=== PATIENT | male | born 1945 | race Caucasian/White ===

== ENCOUNTER 2018-03-29 09:21 | Day surgery (SDC) | payer OTHER ==
[2013-04-18 13:27] VITALS: BMI 29.7
[2018-03-29] MEDS ORDERED: Lactated Ringer's 500 ML IV ONE (12:35)
[2018-03-29 12:42] VITALS: TEMP 97
[2018-03-29] MEDS ORDERED: Midazolam 2 MG/2 ML VIAL ONE (13:38)
[2018-03-29] MEDS ORDERED: Propofol 10 mg/ml Inj (20 ML) ONE (13:38)
[2018-03-29] MEDS ORDERED: Etomidate 20 mg/10ml Inj IV ONE (13:39)
[2018-03-29 13:58] VITALS: O2SAT 99
[2018-03-29 14:19] VITALS: BP 112/56; PULSE 50; RESP 15
== END 2018-03-29 14:21 | disposition home or self-care (01) ==
LOC: H.ENDO 09:21
PROVIDERS: ATTEND Internal Medicine Gastroenterology
DX: R10.13 Epigastric pain (principal); E11.9 Type 2 diabetes mellitus without complications; K44.9 Diaphragmatic hernia without obstruction or gangrene; K21.0 Gastro-esophageal reflux disease with esophagitis; K29.50 Unspecified chronic gastritis without bleeding
CPT/HCPCS: 43239; 82948; 88305; J2001; J2250; J2704; J7120